=== PATIENT | female | born 1995 ===

== ENCOUNTER 2019-04-14 09:45 | Inpatient (IN) | payer OTHER ==
[~2019-04-14] VITALS: Ht 162.6 cm; Wt 3.2 kg
[2019-04-20] MEDS ORDERED: PRENATAL + DHA1 EAC1 PO (08:22)
== END 2019-04-22 13:59 | DRG 788 ==
LOC: O/R 09:45 → LDR 04-19 06:07 → OB/GYN 04-19 06:07 → O/R 04-19 11:53 → OB/GYN 04-19 13:22
PROVIDERS: ADMIT Obstetrics & Gynecology
PROC: 4A1HXCZ Monitoring of Products of Conception, Cardiac Rate, External Approach (ICD-10-PCS; 2019-04-19)
PROC: 4A033R1 Measurement of Arterial Saturation, Peripheral, Percutaneous Approach (ICD-10-PCS; 2019-04-19)
PROC: 10D00Z1 Extraction of Products of Conception, Low, Open Approach (ICD-10-PCS; principal; 2019-04-19 08:30)
DX: O32.1XX0 Maternal care for breech presentation, not applicable or unspecified (principal); Z3A.39 39 weeks gestation of pregnancy; Z37.0 Single live birth